=== PATIENT | female | born 1995 | race Caucasian/White ===

== ENCOUNTER 2023-09-26 22:52 | Emergency (ER) | payer OTHER ==
[~2023-09-26] VITALS: Ht 152.4 cm; Wt 73.5 kg
[2023-09-27] MEDS ORDERED: ACETAMINOPHEN ES 500 MG TABLET ONE (00:15)
[2023-09-27] MEDS ORDERED: CYCLOBENZAPRINE 10 MG TABLET ONE (00:15)
[2023-09-27] MEDS: ACETAMINOPHEN ES 500 MG TABLET PO ONE (00:25)
[2023-09-27] MEDS: CYCLOBENZAPRINE 10 MG TABLET PO ONE (00:25)
[2023-09-27 01:35] VITALS: BP 119/72; TEMP 98.1; O2SAT 96
[2023-09-27] MEDS ORDERED: CYCL5TAB PO (01:47)
[2023-09-27] MEDS ORDERED: ACET-2605 PO (01:47)
== END 2023-09-27 02:05 | disposition home or self-care (01) ==
LOC: ER 22:57
DX: R51.9 Headache, unspecified (principal); M79.661 Pain in right lower leg; M79.645 Pain in left finger(s); J45.909 Unspecified asthma, uncomplicated; V43.92XA Unspecified car occupant injured in collision with other type car in traffic accident, initial encounter; Y93.89 Activity, other specified; Y92.488 Other paved roadways as the place of occurrence of the external cause; Y99.8 Other external cause status
CPT/HCPCS: 70450-TC